=== PATIENT | female | born 2000 | race Caucasian/White ===

== ENCOUNTER 2023-04-16 11:16 | Emergency (ER) | payer BC, OTHER ==
[~2023-04-16] VITALS: Ht 162.6 cm; Wt 111.2 kg
[2023-04-16 11:18] VITALS: TEMP 98.5; O2SAT 98
[2023-04-16] MEDS ORDERED: ACETAMINOPHEN *IV* 1,000 MG in IV 1 EA IV ONE (14:40)
[2023-04-16] MEDS ORDERED: METOCLOPRAMIDE INJ 10MG/2ML VIAL IV ONE (14:40)
[2023-04-16 15:44] LABS: BASO % 0.3 % (0.0-1.0); EOS # 0.1 10^3/uL (0.0-0.5); EOS % 0.7 % (0.0-3.0); HEMATOCRIT 32.8 % (36.0-47.0); HEMOGLOBIN 11.1 g/dl (12.0-15.5); LYMPH # 2.5 10^3/uL (1.5-5.0); LYMPH % 21.7 % (24.0-44.0); MEAN CORPUSCULAR HEMOGLOBIN 28.8 pg (27.0-33.0); MEAN CORPUSCULAR HGB CONC 33.8 g/dl (32.0-36.5); MONO # 0.6 10^3/uL (0.0-0.8); MONO % 5.3 % (2.0-8.0); NEUTROPHILS # 8.3 10^3/uL (1.5-8.5); NEUTROPHILS % 71.5 % (36.0-66.0); PLATELET COUNT, AUTOMATED 275 10^3/uL (150-450); RED BLOOD COUNT 3.86 10^6/uL (4.00-5.40); WHITE BLOOD COUNT 11.6 10^3/uL (4.0-10.0)
[2023-04-16 15:55] LABS: INR 1.02; PROTHROMBIN TIME 13.1 SECONDS (12.5-14.5)
[2023-04-16 15:56] LABS: PARTIAL THROMBOPLASTIN TIME 27.8 SECONDS (24.8-34.2)
[2023-04-16 16:03] LABS: CK-MB VALUE MASS < 1.0 NG/ML (<3.6)
[2023-04-16 16:04] LABS: URIC ACID 3.6 MG/DL (3.1-7.8)
[2023-04-16 16:05] LABS: CPK CREATINE PHOSPHOKINASE 55 U/L (34-145); LDH LACTATE DEHYDROGENASE 169 U/L (120-246); MB/CK RELATIVE INDEX 1.81 (< OR =4)
[2023-04-16 16:06] LABS: ALKALINE PHOSPHATASE 63 U/L (46-116); ALT/SGPT 67 U/L (7.0-40); AST/SGOT 49 U/L (<34); BILIRUBIN,DIRECT 0.2 MG/DL (<0.4); BILIRUBIN,TOTAL 0.6 MG/DL (0.3-1.2); BLOOD UREA NITROGEN 7 MG/DL (9-23); CALCIUM LEVEL 8.8 MG/DL (8.5-10.1); CARBON DIOXIDE LEVEL 23 MMOL/L (20-31); CHLORIDE LEVEL 108 MMOL/L (98-107); CREATININE FOR GFR 0.52 MG/DL (0.55-1.30); GLOMERULAR FILTRATION RATE > 60.0 (>60); GLUCOSE, FASTING 80 MG/DL (60-100); MAGNESIUM LEVEL 1.6 MG/DL (1.8-2.4); POTASSIUM SERUM 3.6 MMOL/L (3.5-5.1); SODIUM LEVEL 139 MMOL/L (136-145); TOTAL PROTEIN 6.5 G/DL (5.7-8.2)
[2023-04-16 16:08] LABS: FREE T4 0.93 NG/DL (0.89-1.76); THYROID STIMULATING HORMONE 1.909 uIU/ML (0.55-4.78)
[2023-04-16 16:35] LABS: TOTAL PROTEIN,RANDOM URINE 27.7 MG/DL (0.0-14.0)
[2023-04-16 16:41] LABS: CREATININE,RANDOM URINE 147.9 MG/DL
[2023-04-16 17:00] VITALS: BP 138/79
[2023-04-16] MEDS ORDERED: ESSE250T PO (17:28)
== END 2023-04-16 17:45 | disposition home or self-care (01) ==
LOC: M ED 11:16
DX: E83.42 Hypomagnesemia (principal); R51.9 Headache, unspecified; R55 Syncope and collapse; F41.9 Anxiety disorder, unspecified; F32.A Depression, unspecified; K21.9 Gastro-esophageal reflux disease without esophagitis; Z88.1 Allergy status to other antibiotic agents; Z79.899 Other long term (current) drug therapy
CPT/HCPCS: 76815; 80048; 80076; 81001; 82550; 82553; 82570; 83605; 83615; 83735; 84156; 84439; 84443; 84484; 84550; 85025; 85384; 85610; 85730; 86850; 86900; 86901; 87086; 93005; 96374; 96375; 99284; J0131; J2765

== ENCOUNTER → 2023-08-13 | Outpatient (REF) | payer BC ==
[~2023-08-13] MED LIST: ACET325C5 PO; BUPR15TA PO; ESSE250T PO; IRON240T PO; OMEP10CASR PO; PRENTAB9 PO
== END ==
LOC: M PLALAB 13:12
PROVIDERS: ATTEND Obstetrics & Gynecology
DX: Z3A.36 36 weeks gestation of pregnancy (principal); B95.1 Streptococcus, group B, as the cause of diseases classified elsewhere

== ENCOUNTER → 2023-08-13 | Outpatient (CLI) | payer BC, OTHER ==
[2023-08-13 16:01] LABS: HEMATOCRIT 35.4 % (36.0-47.0); HEMOGLOBIN 11.3 g/dl (12.0-15.5); MEAN CORPUSCULAR HEMOGLOBIN 27.4 pg (27.0-33.0); MEAN CORPUSCULAR HGB CONC 31.9 g/dl (32.0-36.5); MEAN CORPUSCULAR VOLUME 85.9 fl (80.0-96.0); PLATELET COUNT, AUTOMATED 264 10^3/uL (150-450); RED BLOOD COUNT 4.12 10^6/uL (4.00-5.40); WHITE BLOOD COUNT 8.1 10^3/uL (4.0-10.0)
[2023-08-13 16:21] LABS: TOTAL PROTEIN,RANDOM URINE 15.9 MG/DL (0.0-14.0)
[2023-08-13 16:22] LABS: HEMOGLOBIN A1c 5.6 % (4.0-6.0)
[2023-08-13 16:25] LABS: CREATININE,RANDOM URINE 43.3 MG/DL
[2023-08-13 16:26] LABS: LDH LACTATE DEHYDROGENASE 177 U/L (120-246)
[2023-08-13 16:44] LABS: ALT/SGPT 73 U/L (7.0-40); AST/SGOT 45 U/L (<34); BILIRUBIN,TOTAL 0.5 MG/DL (0.3-1.2); CREATININE FOR GFR 0.66 MG/DL (0.55-1.30); GLOMERULAR FILTRATION RATE > 60.0 (>60)
== END ==
LOC: M PLALAB 14:30
PROVIDERS: ATTEND Obstetrics & Gynecology
DX: Z34.93 Encounter for supervision of normal pregnancy, unspecified, third trimester (principal); Z3A.36 36 weeks gestation of pregnancy

== ENCOUNTER 2023-08-14 22:54 | Outpatient (CLI) | payer BC, OTHER ==
[~2023-08-14] VITALS: Ht 162.6 cm; Wt 123.9 kg
[~2023-08-14 22:54] MED LIST changes: -ACET325C5 PO; -BUPR15TA PO; -IRON240T PO; -OMEP10CASR PO; -PRENTAB9 PO
[2023-08-14] MEDS ORDERED: PRENTAB9 PO (23:16)
[2023-08-14] MEDS ORDERED: OMEP10CASR PO (23:16)
[2023-08-14] MEDS ORDERED: BUPR15TA PO (23:16)
[2023-08-14] MEDS ORDERED: IRON240T PO (23:16)
[2023-08-14] MEDS ORDERED: ACET325C5 PO (23:16)
[2023-08-14 23:20] VITALS: BP 110/82
[2023-08-14 23:31] VITALS: BP 114/89
[2023-08-14] MEDS ORDERED: FIORICET TAB PO ONE (23:45)
[2023-08-15 00:02] LABS: TOTAL PROTEIN,RANDOM URINE 22.7 MG/DL (0.0-14.0)
[2023-08-15 00:03] LABS: URIC ACID 4.8 MG/DL (3.1-7.8)
[2023-08-15 00:05] LABS: LDH LACTATE DEHYDROGENASE 200 U/L (120-246)
[2023-08-15 00:06] LABS: ALT/SGPT 120 U/L (7.0-40); AST/SGOT 71 U/L (<34); BILIRUBIN,TOTAL 0.4 MG/DL (0.3-1.2); GLOMERULAR FILTRATION RATE > 60.0 (>60)
[2023-08-15 00:07] LABS: CREATININE,RANDOM URINE 95.7 MG/DL
[2023-08-15 00:22] LABS: HEMATOCRIT 33.3 % (36.0-47.0); HEMOGLOBIN 10.9 g/dl (12.0-15.5); MEAN CORPUSCULAR HEMOGLOBIN 27.3 pg (27.0-33.0); MEAN CORPUSCULAR HGB CONC 32.7 g/dl (32.0-36.5); MEAN CORPUSCULAR VOLUME 83.3 fl (80.0-96.0); PLATELET COUNT, AUTOMATED 278 10^3/uL (150-450); WHITE BLOOD COUNT 9.5 10^3/uL (4.0-10.0)
[2023-08-15 00:30] VITALS: BP 130/79
== END 2023-08-15 00:42 | disposition home or self-care (01) ==
LOC: M LDO 22:54
PROVIDERS: ATTEND Specialist
DX: O26.893 Other specified pregnancy related conditions, third trimester (principal); R51.0 Headache with orthostatic component, not elsewhere classified; M25.511 Pain in right shoulder; Z3A.36 36 weeks gestation of pregnancy
CPT/HCPCS: 36415; 59025; 82247; 82570; 83615; 84156; 84450; 84460; 84550; 85027; G0463

== ENCOUNTER → 2023-08-17 | Outpatient (CLI) | payer BC, OTHER ==
[~2023-08-17] MED LIST changes: +ACET325C5 PO; +BUPR15TA PO; +IRON240T PO; +OMEP10CASR PO; +PRENTAB9 PO
== END ==
LOC: M WHC 07:14
PROVIDERS: ATTEND Obstetrics & Gynecology
DX: O24.419 Gestational diabetes mellitus in pregnancy, unspecified control (principal)

== ENCOUNTER → 2023-08-21 | Outpatient (CLI) | payer BC, OTHER | LOC: M WHC 11:00 | PROVIDERS: ATTEND Obstetrics & Gynecology | DX: O24.419 Gestational diabetes mellitus in pregnancy, unspecified control (principal); Z3A.36 36 weeks gestation of pregnancy ==

== ENCOUNTER 2023-08-25 19:28 | Inpatient (IN) | payer BC, OTHER ==
[~2023-08-25] VITALS: Ht 162.6 cm; Wt 123.9 kg
[2023-08-25] MEDS ORDERED: OXYTOCIN DRIP 30 UNITS in IV 1 EA IV PRN (20:00)
[2023-08-25] MEDS ORDERED: LIDOCAINE 1% MDV 20ML VIAL INFIL PRN (20:00)
[2023-08-25] MEDS ORDERED: UNRESOLVED CLARIFICATION ENTRY XX STA (20:03)
[2023-08-25] MEDS ORDERED: HOME MED LIST COMPLETE! XX SCH (20:15)
[2023-08-25 20:32] VITALS: BP 136/87; O2SAT 100
[2023-08-25] MEDS: miSOPROStol 50MCG 1/2 TABLET SL SCH (21:03)
[2023-08-25 21:09] LABS: HEMATOCRIT 35.3 % (36.0-47.0); HEMOGLOBIN 11.8 g/dl (12.0-15.5); MEAN CORPUSCULAR HGB CONC 33.4 g/dl (32.0-36.5); MEAN CORPUSCULAR VOLUME 83.8 fl (80.0-96.0); PLATELET COUNT, AUTOMATED 268 10^3/uL (150-450); RED BLOOD COUNT 4.21 10^6/uL (4.00-5.40)
[2023-08-25 21:37] LABS: BLOOD UREA NITROGEN 11 MG/DL (9-23); CALCIUM LEVEL 8.7 MG/DL (8.5-10.1); CARBON DIOXIDE LEVEL 21 MMOL/L (20-31); CHLORIDE LEVEL 106 MMOL/L (98-107); CREATININE FOR GFR 0.64 MG/DL (0.55-1.30); GLOMERULAR FILTRATION RATE > 60.0 (>60); GLUCOSE, FASTING 132 MG/DL (60-100); POTASSIUM SERUM 3.9 MMOL/L (3.5-5.1); SODIUM LEVEL 135 MMOL/L (136-145)
[2023-08-25 22:06] VITALS: BP 130/81
[2023-08-25 23:47] VITALS: BP 119/73
[2023-08-26] VITALS (20 sets, daily range): BP systolic 108–145; BP diastolic 59–106; TEMP 96.7; O2SAT 98
[2023-08-26] MEDS: ACETAMINOPHEN 500 MG TAB PO ONE (05:24)
[2023-08-26] MEDS: OXYTOCIN DRIP 30 UNITS in IV 1 EA IV SCH ×2 (14:07→21:37)
[2023-08-26] MEDS: LR 1,000 ML IV SCH ×2 (14:07→21:38)
[2023-08-26] MEDS: ceFAZolin SOD 2 GM in IV 1 EA IV ONE ×2 (14:22→19:55)
[2023-08-26] MEDS ORDERED: LR 1,000 ML IV SCH (19:10)
[2023-08-26] MEDS ORDERED: ceFAZolin SOD 3 GM IV Place Holder IV ONE (19:10)
[2023-08-26] MEDS: LACTATED RINGER'S 1000 ML IV STA (19:24)
[2023-08-26] MEDS: BICITRA 30ML SOLN UDC PO ONE (19:29)
[2023-08-26] MEDS: ceFAZolin SOD 1 GM in D5W MINI-BAG PLUS 50 ML IV ONE (19:55)
[2023-08-26] MEDS ORDERED: OXYTOCIN 30UNITS IN 0.9% NaCl 500ML IV BAG As Ordered ONE (20:21)
[2023-08-26] MEDS ORDERED: fentaNYL 100 MCG/2 ML INJECTION As Ordered ONE (20:21)
[2023-08-26] MEDS ORDERED: MORPHINE PRES-FREE INJ 10 MG/10 ML VIAL As Ordered ONE (20:21)
[2023-08-26] MEDS ORDERED: ePHEDrine SULFATE 25 MG/5 ML(5MG/ML) SYRINGE As Ordered ONE (20:39)
[2023-08-26] MEDS ORDERED: PHENYLephrine 500MCG 5ML (100MCG/ML) SYRINGE As Ordered ONE (20:39)
[2023-08-26 20:40] LABS: CORD GAS ABE A -13.2; CORD GAS HCO3 A 19.4 MMOL/L; CORD GAS O2 SAT A 33.6 %; CORD GAS PCO2 A 76.9 mmHg; CORD GAS PH A 7.019 UNITS; CORD GAS PO2 A 22.5 mmHg; CORD GAS SBC A 13.2 MMOL/L; CORD GAS TCO2 A 21.7 MMOL/L
[2023-08-26 20:41] LABS: CORD GAS ABE V -10.7; CORD GAS HCO3 V 21.9 MMOL/L; CORD GAS O2 SAT V 42.1 %; CORD GAS PCO2 V 80.6 mmHg; CORD GAS PH V 7.052 UNITS; CORD GAS PO2 V 23.7 mmHg; CORD GAS TCO2 V 24.4 MMOL/L
[2023-08-26] MEDS ORDERED: OXYTOCIN INJ 10UNITS/ML 1ML VIAL As Ordered ONE (20:47)
[2023-08-26] MEDS ORDERED: KETOROLAC 60MG 2ML VIAL As Ordered ONE (21:00)
[2023-08-26] MEDS ORDERED: RHOGAM 300MCG (1500IU) INJ IM SCH (21:25)
[2023-08-26] MEDS ORDERED: oxyCODONE 5MG TAB PO PRN (21:25)
[2023-08-26] MEDS ORDERED: NALOXONE INJ 0.4MG/1ML VIAL IV PRN ×2 (21:25)
[2023-08-26] MEDS ORDERED: PERCOCET 5MG/325MG TAB PO PRN (21:25)
[2023-08-26] MEDS ORDERED: diphenhydrAMINE 50MG/ML VIAL IV PRN (21:25)
[2023-08-26] MEDS ORDERED: fentaNYL 100 MCG/2 ML INJECTION IV PRN (21:25)
[2023-08-26] MEDS ORDERED: ONDANSETRON 4MG 2ML VIAL IV PRN (21:25)
[2023-08-26] MEDS: SLF 3 ML SYR IV SCH (21:25)
[2023-08-26] MEDS ORDERED: **NOTE PATIENT COMMENT** MISC XX SCH (21:25)
[2023-08-26] MEDS ORDERED: SIMETHICONE 80MG CHEW TAB PO PRN (21:25)
[2023-08-26] MEDS ORDERED: METOCLOPRAMIDE INJ 10MG/2ML VIAL As Ordered ONE (21:49)
[2023-08-26] MEDS: METOCLOPRAMIDE INJ 10MG/2ML VIAL IV PRN (21:51)
[2023-08-26] MEDS: METHYLERGONOVINE MALEATE 0.2MG/ML 1ML VIAL IM ONE (22:40)
[2023-08-26] MEDS ORDERED: ceFAZolin SOD 1 GM in D5W MINI-BAG PLUS 50 ML IV SCH (23:00)
[2023-08-26] MEDS: ONDANSETRON 4MG 2ML VIAL IV PRN (23:07)
[2023-08-27] VITALS (7 sets, daily range): BP systolic 109–137; BP diastolic 60–77; O2SAT 97–99
[2023-08-27] MEDS: LR 1,000 ML IV SCH (00:23)
[2023-08-27] MEDS: KETOROLAC 30 MG/ML 1ML VIAL IV SCH (03:21)
[2023-08-27] MEDS ORDERED: OXYC1TAB23 PO (06:39)
[2023-08-27] MEDS ORDERED: IBUP80TA PO (06:39)
[2023-08-27] MEDS ORDERED: COLA100C5 PO (06:39)
[2023-08-27 07:15] LABS: HEMATOCRIT 34.1 % (36.0-47.0); MEAN CORPUSCULAR HEMOGLOBIN 27.5 pg (27.0-33.0); MEAN CORPUSCULAR HGB CONC 32.3 g/dl (32.0-36.5); MEAN CORPUSCULAR VOLUME 85.3 fl (80.0-96.0); PLATELET COUNT, AUTOMATED 218 10^3/uL (150-450); WHITE BLOOD COUNT 13.2 10^3/uL (4.0-10.0)
[2023-08-27] MEDS: PRENATAL VITAMINS CHEWABLE TABLET PO SCH (08:34)
[2023-08-27] MEDS: PERCOCET 5MG/325MG TAB PO PRN (18:32)
[2023-08-27] MEDS: IBUPROFEN 800 MG TAB PO SCH (23:51)
[2023-08-28 02:00] VITALS: BP 119/67; O2SAT 96
[2023-08-28 06:00] VITALS: BP 128/76; O2SAT 98
[2023-08-28] MEDS: MEASLES,MUMPS,RUBELLA VACCINE INJ (MMR-II) SC.IMMUN ONE (06:59)
[2023-08-28 10:00] VITALS: BP 121/95; O2SAT 99
[2023-08-28 14:00] VITALS: BP 119/63; O2SAT 98
[2023-08-28] MEDS: INFLUENZA QUADRIVALENT PF VACCINE 0.5ML SYRINGE IM.IMMUN ONE (16:48)
[2023-08-28 18:00] VITALS: BP 113/74; O2SAT 100
[2023-08-28] MEDS: DOCUSATE SODIUM 100MG CAPSULE PO PRN (18:25)
== END 2023-08-28 18:45 | disposition home or self-care (01) | DRG 540 ==
LOC: M LDI 19:28 → M OBS 08-26 23:10
PROVIDERS: ADMIT Specialist; ATTEND Specialist
PROC: 3E0P7VZ Introduction of Hormone into Female Reproductive, Via Natural or Artificial Opening (ICD-10-PCS; 2023-08-25)
PROC: 3E033VJ Introduction of Other Hormone into Peripheral Vein, Percutaneous Approach (ICD-10-PCS; 2023-08-26)
PROC: 10D00Z1 Extraction of Products of Conception, Low, Open Approach (ICD-10-PCS; principal; 2023-08-26 19:23)
DX: O24.429 Gestational diabetes mellitus in childbirth, unspecified control (principal); O99.214 Obesity complicating childbirth; O99.824 Streptococcus B carrier state complicating childbirth; Z37.0 Single live birth; Z3A.38 38 weeks gestation of pregnancy; Z88.0 Allergy status to penicillin; O69.82X0 Labor and delivery complicated by other cord entanglement, without compression, not applicable or unspecified; O61.0 Failed medical induction of labor

== ENCOUNTER → 2024-08-08 | Outpatient (REF) ==
[~2024-08-08] MED LIST changes: +COLA100C5 PO; +IBUP80TA PO; +OXYC1TAB23 PO
== END ==
LOC: M CFLAB 14:51
DX: Z12.4 Encounter for screening for malignant neoplasm of cervix (principal)